=== PATIENT | male | born 1985 ===

== ENCOUNTER 2020-06-01 12:46 | Emergency (ER) | payer SELFPAY ==
[2020-06-01 18:09] VITALS: BP 133/75
--- NOTE | 2020-06-01 18:23 | Event Note ---
ED Screening Note Date of service: 06/01/20 Time: 18:22 ED Screening Note: 34-year-old -Romanian male reports that he injured his left foot 2 days ago. Patient has not taken any pain medication states he has been icing it and he did. This initial assessment/diagnostic orders/clinical plan/treatment(s) is/are subject to change based on patients health status, clinical progression and re- assessment by fellow clinical providers in the ED. Further treatment and workup at subsequent clinical providers discretion. Patient/guardian urged not to elope from the ED as their condition may be serious if not clinically assessed and managed. Initial orders include:
--- NOTE | 2020-06-01 19:15 | XRay Report ---
LEFT FOOT 2 VIEWS INDICATION / CLINICAL INFORMATION: lt foot injury COMPARISON: None available. FINDINGS: BONES / JOINT(S): No acute fracture or subluxation. No significant arthritis. SOFT TISSUES: No significant abnormality. ADDITIONAL FINDINGS: None. Signer Name: Warren Del Rio MD Signed: 06/01/2020 7:11 PM Workstation Name: [id number]
[2020-06-01] MEDS ORDERED: IBUPROFEN 800 MG TAB PO ONE (19:26)
--- NOTE | 2020-06-01 19:27 | Emergency Department Report ---
ED Fall HPI - General Chief Complaint: Extremity Injury, Upper Stated Complaint: LF FOOT TWISTED/PAIN Time Seen by Provider: 06/01/20 19:23 Source: patient Mode of arrival: Wheelchair - History of Present Illness Initial Comments: Patient is a 34-year-old -Turkish male who comes to the ER complaining of left foot pain after falling from the porch. He states he did not fall per se but twisted his left foot. Family was with him when the incident occurred. He denies any LOC. He complains of pain on the dorsal surface of the left foot. He is ambulatory to the ER. He denies any other pain or injury. - Related Data Allergies Allergy/AdvReac Type Severity Reaction Status Date / Time No Known Allergies Allergy Unverified 06/01/20 18:09 ED Review of Systems ROS: Stated complaint: LF FOOT TWISTED/PAIN Other details as noted in HPI Comment: All other systems reviewed and negative ED Past Medical Hx - Past Medical History Previous Medical History?: No - Surgical History Past Surgical History?: No - Family History Family history: no significant - Social History Smoking Status: Never Smoker Substance Use Type: None ED Physical Exam - General Limitations: No Limitations General appearance: alert, in no apparent distress - Head Head exam: Present: atraumatic, normocephalic - Eye Eye exam: Present: normal appearance - ENT ENT exam: Present: mucous membranes moist - Neck Neck exam: Present: normal inspection - Respiratory Respiratory exam: Present: normal lung sounds bilaterally. Absent: respiratory distress - Cardiovascular Cardiovascular Exam: Present: regular rate, normal rhythm. Absent: systolic murmur, diastolic murmur, rubs, gallop - GI/Abdominal GI/Abdominal exam: Present: soft, normal bowel sounds - Rectal Rectal exam: Present: deferred - Extremities Exam Extremities exam: Present: normal inspection - Back Exam Back exam: Present: normal inspection - Neurological Exam Neurological exam: Present: alert, oriented X3 - Psychiatric Psychiatric exam: Present: normal affect, normal mood - Skin Skin exam: Present: warm, dry, intact, normal color. Absent: rash ED Course Vital Signs 06/01/20 18:05 Temperature 99.2 F Pulse Rate 96 H Respiratory 18 Rate Blood Pressure 133/75 O2 Sat by Pulse 99 Oximetry ED Medical Decision Making - Radiology Data Radiology results: report reviewed, image reviewed interpreted by me: bhanu drummond - Medical Decision Making Vital Signs 06/01/20 18:05 Temperature 99.2 F Pulse Rate 96 H Respiratory 18 Rate Blood Pressure 133/75 O2 Sat by Pulse 99 Oximetry xray nap Patient given Motrin for pain. Patient is ambulating with a limp. He was given an Eamon and crutches for pain management for the next 48 hours. He understands that after 48 hours he needs to bear weight and use the foot to avoid secondary injury. Patient has been educated that if the pain persist beyond that time he needs to follow-up with Dr. Estrada or orthopedic doctor. Referral has been provided. Patient verbalizes understanding. - Differential Diagnosis ro fx Critical care attestation.: If time is entered above; I have spent that time in minutes in the direct care of this critically ill patient, excluding procedure time. ED Disposition Clinical Impression: Fall, Foot sprain Disposition: - TO HOME OR SELFCARE Is pt being admited?: No Does the pt Need Aspirin: No Condition: Stable Instructions: Foot Sprain Additional Instructions: ice rest elevate foot crutches for 48 hours with eamon for comfort over the counter motrin or tylenol for pain follow up with ortho if pain persists referral below Referrals: OBIE ESTRADA MD [Staff Physician] - 3-5 Days Time of Disposition: 19:26
== END 2020-06-01 19:30 | disposition home or self-care (01) ==
LOC: ED 12:46
DX: S93.602A Unspecified sprain of left foot, initial encounter (principal); W18.30XA Fall on same level, unspecified, initial encounter; Y93.89 Activity, other specified; Y92.89 Other specified places as the place of occurrence of the external cause; Y99.8 Other external cause status